=== PATIENT | female | born 1975 | race Caucasian/White ===

== ENCOUNTER → 2023-09-13 16:19 | Outpatient (REF) | payer BC, SELFPAY | LOC: RAD 16:19 | PROVIDERS: ATTENDING PHYSICIAN Physician Assistant Medical; REFERRING PHYSICIAN Internal Medicine Critical Care Medicine | DX: R39.15 Urgency of urination (principal); J98.4 Other disorders of lung | CPT/HCPCS: 71046; 76770 ==

== ENCOUNTER → 2023-11-19 07:05 | Outpatient (REF) | payer BC, SELFPAY | LOC: RCS 07:05 | PROVIDERS: ATTENDING PHYSICIAN Internal Medicine Critical Care Medicine | DX: I27.20 Pulmonary hypertension, unspecified (principal) | CPT/HCPCS: 93306 ==

== ENCOUNTER → 2024-01-13 10:54 | Outpatient (REF) | payer BC, SELFPAY | LOC: WDC 10:54 | PROVIDERS: ATTENDING PHYSICIAN Physician Assistant Medical | DX: Z12.31 Encounter for screening mammogram for malignant neoplasm of breast (principal) | CPT/HCPCS: 77063; 77067 ==

== ENCOUNTER → 2024-01-31 18:15 | Outpatient (REF) | payer BC, SELFPAY | LOC: RAD 18:15 | PROVIDERS: ATTENDING PHYSICIAN Physician Assistant Medical | DX: G89.29 Other chronic pain (principal); M54.41 Lumbago with sciatica, right side; M54.42 Lumbago with sciatica, left side | CPT/HCPCS: 72072; 72110 ==